=== PATIENT | male | born 1995 | race Caucasian/White ===

== ENCOUNTER 2017-05-14 10:12 | Emergency (ER) | payer MEDICAID ==
[2017-05-14 10:20] VITALS: BP 109/64; PULSE 87; RESP 16; TEMP 97.5; O2SAT 97; BMI 19.2
--- NOTE | 2017-05-14 11:42 | ED PDOC ---
HPI: Nose Bleed Time Seen by Provider: 05/14/17 10:49 Chief Complaint (Nursing): Headache Chief Complaint (Provider): headache/nosebleed History Per: Patient History/Exam Limitations: no limitations Additional Complaint(s): 22yo M in ED for eval of nosebleed lasting 1 min from right nare without acute injury with residual HAMMOND-to post head lasting about 2 mins-sharp with ringing in ear. event occurred twice this week. once while working second() while getting up from bed. no hx of nose bleed, no recent head injury no sinus drainage, URI or cough, no recent congestion or ear pain. denies : fever, chills, change in vision, gait, speech, weakness in UE/LE. strong family hx of brain tumor(father/grandmother-fathers side) Past Medical History Reviewed: Historical Data, Nursing Documentation, Vital Signs Vital Signs: Last Vital Signs Temp 97.5 F L 05/14/17 10:19 Pulse 87 05/14/17 10:19 Resp 16 05/14/17 10:19 BP 109/64 05/14/17 10:19 Pulse Ox 97 05/14/17 10:19 - Medical History PMH: No Chronic Diseases - Family History Family History: States: Unknown Family Hx - Immunization History Hx Tetanus Toxoid Vaccination: No Hx Influenza Vaccination: No Hx Pneumococcal Vaccination: No - Home Medications Home Medications: Ambulatory Orders Medication Instructions Recorded Ibuprofen [Motrin] 1 tab PO TID PRN #30 tab 09/23/13 traMADol/Acetaminophen [Ultracet 1 tab PO Q8 PRN #15 tab 09/23/13 325 MG-37.5 MG] Cyclobenzaprine [Cyclobenzaprine 10 mg PO TID PRN #15 tab 12/03/15 HCl] Ibuprofen [Motrin] 600 mg PO Q6H PRN #20 tab 12/03/15 - Allergies Allergies/Adverse Reactions: Allergies Allergy/AdvReac Type Severity Reaction Status Date / Time apple Allergy RASH Verified 05/14/17 10:27 Review of Systems ROS Statement: Except As Marked, All Systems Reviewed And Found Negative Constitutional: Negative for: Fever, Chills ENT: Negative for: Ear Pain, Nose Pain, Nose Discharge, Nose Congestion, Mouth Pain, Mouth Swelling, Throat Pain, Throat Swelling Neurological: Negative for: Weakness, Numbness, Incoordination, Change in Speech , Confusion, Seizures, Altered Mental Status, Headache, Dizziness Physical Exam - Reviewed Nursing Documentation Reviewed: Yes Vital Signs Reviewed: Yes - Physical Exam Appears: Positive for: Well, Non-toxic, No Acute Distress Skin: Positive for: Normal Color, Warm, DRY Eye Exam: Positive for: EOMI, Normal appearance, PERRL ENT: Positive for: Normal ENT Inspection, Other (b/l NAres-normal appearing with unremarkable turbinates no hematoma) Cardiovascular/Chest: Positive for: Regular Rate, Rhythm Respiratory: Positive for: CNT, Normal Breath Sounds Gastrointestinal/Abdominal: Positive for: Normal Exam, Bowel Sounds, Soft Back: Positive for: Normal Inspection. Negative for: L CVA Tenderness, R CVA Tenderness Neurologic/Psych: Positive for: Alert, Oriented - ECG O2 Sat by Pulse Oximetry: 97 - Progress ED Course And Treament: Pt with strong family hx of brain tumor with spontaneous nose bleed and residual HAMMOND-will get CT scna of head. Medical Decision Making Medical Decision Making: ct head: IMPRESSION: Unremarkable noncontrast CT scan of the brain. No appreciable nasal cavity mass. No bone destruction. Very mild mucosal thickening in the sinuses without air-fluid level. PT d/c with f.u to ENT Disposition - Clinical Impression Clinical Impression: Nasal bleeding - Patient ED Disposition Is Patient to be Admitted: No Counseled Patient/Family Regarding: Need For Followup - Disposition Disposition: Routine/Home Disposition Time: 12:09 Condition: GOOD Instructions: Nosebleed (ED) Forms: [facility] [facility] (Green[place]ic)
--- NOTE | 2017-05-14 11:57 | CT ---
PROCEDURE: CT HEAD WITHOUT CONTRAST. HISTORY: hx of tumor, nose bleed with HAMMOND COMPARISON: None available. TECHNIQUE: Axial computed tomography images were obtained through the head/brain without intravenous contrast. Radiation dose: Total exam DLP = 1186 mGy-cm. This CT exam was performed using one or more of the following dose reduction techniques: Automated exposure control, adjustment of the mA and/or kV according to patient size, and/or use of iterative reconstruction technique. FINDINGS: HEMORRHAGE: No intracranial hemorrhage. BRAIN: No mass effect or edema. No atrophy or chronic microvascular ischemic changes. VENTRICLES: Unremarkable. No hydrocephalus. CALVARIUM: Unremarkable. PARANASAL SINUSES: Minor mucosal changes are seen in the sinuses without air-fluid level. MASTOID AIR CELLS: Unremarkable as visualized. No inflammatory changes. OTHER FINDINGS: None. IMPRESSION: Unremarkable noncontrast CT scan of the brain. No appreciable nasal cavity mass. No bone destruction. Very mild mucosal thickening in the sinuses without air-fluid level.
== END 2017-05-14 12:27 | disposition home or self-care (01) ==
LOC: H.ER 10:12
DX: R04.0 Epistaxis (principal); R51 Headache